=== PATIENT | male | born 1995 | race African-American/Black ===

== ENCOUNTER → 2020-11-28 | Outpatient (CLI) | payer OTHER ==
[2020-11-28 09:58] LABS: URINE BILIRUBIN NEGATIVE (Negative); URINE BLOOD NEGATIVE (Negative); URINE CLARITY CLEAR; URINE COLOR YELLOW; URINE GLUCOSE-RANDOM* NEGATIVE (Negative); URINE KETONES NEGATIVE (Negative); URINE LEUKOCYTES-REFLEX NEGATIVE (Negative); URINE NITRITE-REFLEX NEGATIVE (Negative); URINE PROTEIN (DIPSTICK) NEGATIVE (Negative); URINE SPECIFIC GRAVITY >= 1.030 (1.005-1.035)
[2020-11-28 10:14] LABS: ALBUMIN 3.8 g/dL (3.4-5.0); CALCIUM 8.5 mg/dL (8.5-10.1); TOTAL BILIRUBIN 0.6 mg/dL (0.2-1.0); TOTAL PROTEIN 7.1 g/dL (6.4-8.2)
--- NOTE | 2020-11-28 11:28 | 2DMMODE ---
[facility] [address] [place] [address] 2 D/M-MODE ECHOCARDIOGRAM Name: MIK DE SOUZA Room #: PRE DUONG Yadav.Renetta#: [id number] Admission: Attend Phys: Physician not on staff Discharge: Date of : 89 Report #: [id number] THIS REPORT FOR: cc: [facility] - Family physician unknown FAM - Family physician unknown Henry Mathews MD ~ APPROVED REPORT Study performed: 11/28/2020 09:24:11 EXAM: Comprehensive 2D, Doppler, and color-flow Echocardiogram Patient Location: Out-Patient Room #: 2 Status: routine BSA: 1.90 HR: 52 bpm BP: 104/68 mmHg Rhythm: Bradycardia Other Information Study Quality: Good Indications CAD 2D Dimensions RVDd: 39.63 mm IVSd: 7.92 (7-11mm) LVOT Diam: 23.86 (18-24mm) LVDd: 48.94 mm PWd: 8.89 (7-11mm) Ascending Ao: 30.00 (22-36mm) LVDs: 33.25 (25-40mm) Left Atrium: 32.85 (27-40mm) Aortic Root: 30.64 mm IVC: 16.00 mm Volumes Left Atrial Volume (Systole) Single Plane 4CH: 38.56 mL Single Plane 2CH: 50.18 mL LA ESV Index: 27.00 mL/m2 Aortic Valve AoV Peak Gordo.: 0.97 m/s AO Peak Gr.: 3.78 mmHg LVOT Max P.37 mmHg LVOT Max V: 0.77 m/s BERNADINE Vmax: 3.[address] [facility] [address] [place] [address] 2 D/M-MODE ECHOCARDIOGRAM Name: MIK DE SOUZA Room #: [facility].#: [id number] Admission: Attend Phys: Physician not on s Discharge: Date of : [birth year] Report #: [id number] Mitral Valve E/A Ratio: 2.3 MV Decel. Time: 189.43 ms MV E Max Gordo.: 0.72 m/s MV A Gordo.: 0.31 m/s MV PHT: 54.93 ms IVRT: 96.89 ms Pulmonary Valve PV Peak Gordo.: 0.86 m/s PV Peak Gr.: 2.97 mmHg Pulmonary Vein P Vein S: 0.33 m/s P Vein A: 0.22 m/s P Vein D: 0.53 m/s P Vein A Dur.: 124.6 msec P Vein S/D Ratio: 0.62 Left Ventricle The left ventricle is normal size. There is normal LV segmental wall motion. There is normal left ventricular wall thickness. Left ventricular systolic function is normal. The left ventricular ejection fraction is within the normal range. LVEF is 55-60%. Left ventricular filling pattern is normal for age. Right Ventricle The right ventricle is normal size. The right ventricular systolic function is normal. Atria The left atrium size is normal. The right atrium size is normal. Aortic Valve The aortic valve is normal in structure. No aortic regurgitation is present. There is no aortic valvular stenosis. Mitral Valve The mitral valve is normal in structure. There is no mitral valve regurgitation noted. No evidence of mitral valve stenosis. Tricuspid Valve The tricuspid valve is normal in structure. There is no tricuspid valve regurgitation noted. Pulmonic Valve The pulmonary valve is normal in structure. There is no pulmonic [facility] [address] [place] [address] 2 D/M-MODE ECHOCARDIOGRAM Name: MIK DE SOUZA Room #: [facility] M.R.#: [id number] Admission: Attend Phys: Physician not on s Discharge: Date of : [birth year] Report #: [id number] valvular regurgitation. Great Vessels The aortic root is normal in size. IVC is normal in size and collapses >50% with inspiration. Pericardium There is no pericardial effusion. <Conclusion> The left ventricle is normal size. There is normal left ventricular wall thickness. Left ventricular systolic function is normal. The right ventricle is normal size. The left atrium size is normal. The aortic valve is normal in structure. The mitral valve is normal in structure. <ELECTRONICALLY SIGNED> By: Henry Mathews MD 11/28/20 [id number] Henry Mathews MD /LAURENT
== END ==
LOC: CV 10:09
DX: I25.10 Atherosclerotic heart disease of native coronary artery without angina pectoris (principal); N18.9 Chronic kidney disease, unspecified; I51.9 Heart disease, unspecified